=== PATIENT | female | born 1965 | race American Indian/Alaskan Native ===

== ENCOUNTER 2019-10-08 11:14 | Outpatient (CLI) | payer OTHER ==
--- NOTE | 2019-10-08 12:12 | Mammography Report ---
DIGITAL BILATERAL DIAGNOSTIC MAMMOGRAM WITH CAD, WITHOUT TOMOSYNTHESIS 10/08/2019 INDICATION: Follow-up left density TECHNIQUE: Digital bilateral mammographic imaging was performed. This examination was interpreted with the benefit of Computer-aided Detection analysis. COMPARISON: 05/28/2018, 07/13/2016 Breast Density: There are scattered areas of fibroglandular density. FINDINGS: Benign-appearing calcifications are noted. Mediastinal lymph nodes are again seen. The dens ity in question in the far lateral left breast is less obvious now. No other changes are seen. IMPRESSION: No significant lesions are seen Follow up recommendation: Routine BI-RADS Category 2: Benign. A "normal" or negative report should not discourage follow up or biopsy of a clinically significant f inding. A written summary of these findings will be mailed to the patient. The patient will be entered into a mammography reporting system which will generate a reminder letter for the patient's next appointmen t at the appropriate interval. According to the [employer], yearly mammograms are recommended starting at age 40 and continuing as long as a woman is in good health. Breast MRI is recommended for women with an gopi roximately 20-25% or greater lifetime risk of breast cancer, including women with a strong family his tory of breast or ovarian cancer and women who have been treated for Hodgkin's disease. Signer Name: Temo Terry MD Signed: 10/08/2019 12:08 PM Workstation Name: [id number]
== END 2019-10-08 11:15 | disposition home or self-care (01) ==
LOC: US 11:14
DX: R92.8 Other abnormal and inconclusive findings on diagnostic imaging of breast (principal)
CPT/HCPCS: 77066